=== PATIENT | male | born 1995 | race Caucasian/White ===

== ENCOUNTER → 2024-08-12 14:25 | Emergency (ER) | payer OTHER, SELFPAY ==
[2024-08-12 14:29] VITALS: BP 110/66
--- NOTE | 2024-08-12 15:16 | ED.GENMED ---
History of Present Illness
General
Chief Complaint: Fainting/Passed Out
Source: patient
Exam Limitations: none
Time Seen by Provider: 08/12/24 15:07
History of Present Illness
History of Present Illness:
See MDM
Past History
Past History
ED Past Medical History: None
ED Past Surgical History: None
Social History
Tobacco: Non-smoker
Alcohol: None
Phy Exam
Physical Exam
Physical Exam:
See MDM
Course
Orders/Labs/Results
Orders:
Orders
08/12/24 14:35
Electrocardiogram (*1) Urgent
Reason for Study: Chest Pain
EKG- Treatment ONCE
Vital Signs
Initial and Last Documented VS:
Initial Vital Signs
Temp Pulse Resp BP Pulse Ox
98.0 F 73 20 110/66 99
08/12/24 14:29 08/12/24 14:29 08/12/24 14:29 08/12/24 14:29 08/12/24 14:29
Last Documented Vital Signs
Temp Pulse Resp BP Pulse Ox
98.0 F 67 17 121/61 100
08/12/24 14:29 08/12/24 15:30 08/12/24 15:30 08/12/24 15:19 08/12/24 15:30
MDM/Problems Addressed
Differential Diagnosis Includes:
HPI and MDM Narrative:
29-year-old male presenting for evaluation of syncopal event. Patient has been dealing with ongoing back pain so he is finally getting an MRI today. Patient remembers getting prep for the MRI and he remembers listening to music while the MRI just
started. Patient then remembers being woken up in the hallway by nursing staff. He was told by the nurse that he was screaming 'get me out, get me out, get me out!' He then was noted to be diaphoretic. No postictal state.
Patient believes this was a vasovagal syncope as he has had the same reaction when he gets blood drawn. On exam, he is well-appearing nontoxic. There is no tongue bite. Heart regular rate and rhythm. I offered blood work but patient declined
because this can spark syncope. 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
Physical exam
General: Well appearing and non-toxic
HEENT: protecting airway
Neck: appears supple
CV: No evidence of cyanosis. Regular rate and rhythm. No murmur
Resp: No accessory muscle use
Abd: Non-distended
Extremities: No deformities
Neuro: alert
Psych: Normal affect
Skin: Intact
Problems Addressed including Acute and Chronic Conditions affecting care:
1. Syncope
Acuity: acute
Prognosis: stable
Details: Likely in setting of vasovagal while he was getting MRI. No postictal period noted per patient. Patient declined blood work because it can cause him to have another episode
Updates
After observation emergency department, patient remains sinus rhythm on the monitor. He is feeling better. Discussed outpatient follow-up and Holter monitor
Differential Diagnosis (but not limited to):
Testing considered:
Drug therapy (if applicable): OTC meds, please see d/c instruction regarding Rx drugs
Amount and/or Complexity of Data Reviewed
Clinical info obtained from: Patient
External data reviewed: N/A
Labs I independently reviewed (but not limited to): N/A
Radiology: N/A
Pulse Ox: not hypoxic
EKG independently reviewed: Sinus rhythm, normal axis, no STEMI
Rn Rehabilitation: Sinus rhythm
Critical Care: N/A
Risk of Complication:
Social Determinants of health: Good social support
Discussed with other providers: N/A
Escalation of Care includes Admit/Obs: After being observed in the Emergency Department, pt stable for discharge.
Occasional wrong word or 'sound a like' substitutions may have occurred due to the inherent limitations of voice recognition software. Read the chart carefully and recognize, using context, where substitutions have occurred.
*Critical Care Note
Total Time (30-74mins, 75-104mins- exclusive of procedures): Not Applicable
ED Attending Note
-
Portions of this chart may have been created with voice recognition software.� Occasional wrong word or��sound alike� substitutions may have occurred due to the inherent limitations of voice recognition software.
Discharge Plan
Departure
Patient Disposition: Home (Routine Discharge)
Date of Disposition: 08/12/24
Time of Disposition: 16:09
Patient with high blood pressure during this ER visit?: No
Discharge Problem:
Vasovagal syncope
Instructions: Syncope (Fainting) (DC)
Activity Restrictions/Additional Instructions:
Please return for any worsening symptoms.
You may return at any time if you have further concerns.
Please follow up with your doctor at the first available appointment, preferably this week. Please talk to your doctor about obtaining a Holter monitor.
Thank you for choosing [facility].
Interventions
Interventions:
*Risk Screen - Suicide Last Done: 08/12/24 14:29
*General Assessment Last Done: 08/12/24 14:29
*Neglect/Abuse Screening Last Done: 08/12/24 14:29
ED- Fall Risk Assessment Last Done: 08/12/24 15:35
ED- Cardiac Assessment Last Done: 08/12/24 15:35
ED- Neurological Assessment Last Done: 08/12/24 15:35
Discharge Date and Time
Print Language: WOLOF
[2024-08-12 15:19] VITALS: BP 121/61
== END | disposition home or self-care (01) ==
LOC: EMR 14:25
PROVIDERS: EMERGENCY PHYSICIAN Student in an Organized Health Care Education/Training Program; FAMILY PHYSICIAN Family Medicine
DX: R55 Syncope and collapse (principal)
CPT/HCPCS: 99283; 93005